=== PATIENT | female | born 1960 | race Caucasian/White ===

== ENCOUNTER → 2019-12-29 11:19 | Outpatient (CLI) | payer OTHER, SELFPAY ==
--- NOTE | 2019-12-29 15:14 | STRESSREP_ITS ---
Stress Test Report Date: 12-29-2019 Procedure: Exercise tolerance test Indications: Chest pain Consent: Per the patient Procedure: The patient exercised on a Candelario protocol for 10 minutes completing stage III and 1 minute of stage IV achieving a peak heart rate of 142 bpm (87 % predicted maximal heart rate) with a peak blood pressure 168/74 mmHg and a peak MET capacity of approximately 11 mET's. The baseline ECG demonstrated normal sinus rhythm. The peak exercise ECG demonstrated no obvious ECG changes. There were no cardiac dysrhythmias pretest, during exercise, or recovery. The functional capacity was considered good. The patient had mild chest discomfort pretest, during exercise, and recovery with no reported change. The examination was discontinued secondary to discomfort. Impression: 1. Technically adequate (percent predicted maximal heart rate greater than 85%) exercise tolerance test 2. Peak exercise ECG with no obvious ECG changes 3. There were no cardiac dysrhythmias during exercise or recovery This note was generated with [employer] software. It may contain incorrect words, spelling, and punctuation that were not noted in checking the note before signing.
== END ==
PROVIDERS: PCP Internal Medicine; Referring Provider Clinical Nurse Specialist; Visit Provider Clinical Nurse Specialist
DX: R07.89 Other chest pain (principal)
CPT/HCPCS: 93017

== ENCOUNTER 2021-07-08 11:20 | Emergency (ER) | payer OTHER, SELFPAY ==
[2021-07-08 11:21] VITALS: BP 127/81; PULSE 93; RESP 20; TEMP 36.7; O2SAT 96; BMI 26.8
[2021-07-08 11:24] VITALS: BP 127/81; PULSE 92; RESP 20; TEMP 36.7; TEMP 36.9; O2SAT 95
--- NOTE | 2021-07-08 12:07 | EKG12_ITS ---
Test Reason : SOB Blood Pressure : / mmHG Vent. Rate : 078 BPM Atrial Rate : 078 BPM P-R Int : 166 ms QRS Dur : 100 ms QT Int : 370 ms P-R-T Axes : 039 059 032 degrees QTc Int : 421 ms Normal sinus rhythm Low voltage QRS (Limb Leads) Confirmed by KATE FANG, DRE ([id number]), greeting card editor ANAT BOWLING ([id number]) on 07/10/2021 9:10:29 AM Referred By: MIKO Confirmed By:DRE LOVE MD
--- NOTE | 2021-07-08 12:07 | ED.VIS.DYS ---
HPI History of Present Illness Chief Complaint: Shortness of Breath Narrative Narrative: Patient was diagnosed with Covid, symptoms have improved but she has shortness of breath and a weight on her chest. She does have a hypercoagulable state but she is on Xarelto. She has no calf pain. She has no pleuritic component. She has no fever or chills she does have generalized myalgias but these are improving. PFSH PFSH Home Medications rivaroxaban [Xarelto] 20 mg PO DAILY #30 tablet 02/19/14 [Rx Last Taken Unknown] cholecalciferol (vitamin D3) [Vitamin D3] 25 mcg PO DAILY 07/08/21 [History Last Taken Unknown] flaxseed oil 1,000 mg PO DAILY 07/08/21 [History Last Taken Unknown] multivitamin 1 tab PO DAILY 07/08/21 [History Last Taken Unknown] Allergy/AdvReac Type Severity Reaction Status Date / Time Sulfa (Sulfonamide AdvReac Nausea Verified 07/08/21 11:21 Antibiotics) Social History Smoking Status: Never smoker ROS ROS ED ROS Narrative Past medical history: Reviewed, history of DVT on Xarelto Medications: Reviewed Social history: Noncontributory Review of systems: All systems negative except as indicated General: No current fever Eyes: No visual changes ENT: No upper airway congestion, normal voice Neck: No neck pain Cardiovascular: She does feel some pressure on her chest. Respiratory: Shortness of breath as in HPI Gastrointestinal: No abdominal pain, nausea vomiting or diarrhea Genitourinary: No dysuria Musculoskeletal: Myalgias that are improving Skin: No rash Neurological: No memory loss, confusion or any focal weakness Psych: No recent behavioral changes Hematologic: No easy bleeding or easy bruising EXAM Physical Exam Narrative Exam Narrative: Physical exam General: Well nourished, Well developed, No Acute Distress. She does not appear toxic. Head: Normocephalic, Atraumatic Eyes: Conjunctiva not pale ENT: Moist mucous membranes, some upper airway congestion. Neck: Supple, Nontender, No lymphadenopathy Cardiovascular: Regular rate, Regular rhythm Respiratory: No distress, CTA bilaterally. She is speaking in full sentences and saturating well. Abdomen: Soft, Nontender, Nondistended Back: Nontender, Normal Inspection. Negative for: CVA tenderness Extremities: Nontender, No edema Skin: Normal color, No rash Neurological: Alert, Normal Strength, Normal Sensation Psychological: Normal affect Const Vital Signs: 07/08/21 11:21 07/08/21 11:24 07/08/21 12:45 Temperature 98.1 F 98.4 F 98.4 F Temperature Source Temporal Temporal Temporal Pulse Rate 93 92 92 Respiratory Rate 20 H 20 H 20 H Respiratory Effort Blood Pressure 127/81 H 127/81 H 127/81 H Blood Pressure Mean 96 96 96 Pulse Ox 96 95 95 Oxygen Delivery Method Room Air Room Air Room Air 07/08/21 12:47 Temperature Temperature Source Pulse Rate Respiratory Rate Respiratory Effort Normal Blood Pressure Blood Pressure Mean Pulse Ox Oxygen Delivery Method Room Air MDM MDM MDM Narrative Medical decision making narrative: Patient has an unremarkable work-up. She is saturating well when I went into the room she was saturating at 100%. Her x-ray is unremarkable and blood work is unremarkable. I am not worried about thromboembolic disease since she is on Xarelto. She is day 9 of her Covid and appears to be doing well. She has a pulse oximeter at home and will check if it drops below 90 she will return otherwise if she feels much worse she will also return. Lab Data Labs: Laboratory Results - last 24 hr 07/08/21 07/08/21 12:30 12:30 WBC 1.9 L RBC 4.95 Hgb 14.2 Hct 43.2 MCV 87.3 MCH 28.7 MCHC 32.9 RDW Std Deviation 39.3 RDW Coeff of Seun 12.3 Plt Count 221 MPV 8.6 Immature Gran % (Auto) 0.000 Neut % (Auto) 26.3 L Lymph % (Auto) 60.8 H [place] % (Auto) 12.9 H Eos % (Auto) 0.0 Baso % (Auto) 0.0 Absolute Neuts (auto) 0.5 L Absolute Lymphs (auto) 1.18 Nucleated RBC % 0 Differential Comment Atypical Lymphocytes 1+ Platelet Estimate ADEQUATE RBC Morphology NORM C+C Sodium 139 Potassium 3.7 Chloride 105 Carbon Dioxide 28.0 Anion Gap 6 BUN 8 Creatinine 0.67 Estim Creat Clear Calc 82.36 Est GFR (MDRD) Af Amer 116 Est GFR (MDRD) Non-Af 96 BUN/Creatinine Ratio 11.9 Glucose 98 Calcium 8.7 Total Bilirubin 0.40 AST 36 ALT 42 Alkaline Phosphatase 76 Troponin I High Sens 6 Total Protein 8.1 Albumin 3.5 Globulin 4.6 H Albumin/Globulin Ratio 0.8 L Radiography Diagnostic Testing: Radiology Impression Chest X-Ray 07/08/21 12:43 IMPRESSION: Minimal increased markings at the right lung base. Early infiltrate should be ruled out. Electronically Signed: Memo Morse MD at 12:54 EDT , Service support , Discharge Plan Triage Chief Complaint: Shortness of Breath ED Provider: Giovanny Lima Dx/Rx/DC Orders Clinical Impression: COVID Instructions: Coronavirus Disease 2019 (COVID-19): Overview Prescriptions: No Action Xarelto 20 MG tablet 20 mg PO DAILY Qty: 30 RF: 0 multivitamin Tablet 1 tab PO DAILY RF: 0 flaxseed oil 1,000 mg Capsule 1,000 mg PO DAILY RF: 0 cholecalciferol (vitamin D3) [Vitamin D3] 25 mcg (1,000 unit) Tablet,Chewable 25 mcg PO DAILY RF: 0 Primary Care Provider: Salome Harvey Referrals: Salome Harvey MD [Primary Care Provider] - 2 Days Disposition Disposition: Home, Self Care
--- NOTE | 2021-07-08 12:43 | RAD_ITS ---
STUDY: X-RAY CHEST REASON FOR EXAM: Female, 60 years old. Increasing shortness of breath and fatigue. Low-grade fever. TECHNIQUE: Single AP portable view of the chest. COMPARISON: None. FINDINGS: Minimal increased markings at the right lung base. Early infiltrate should be ruled out. There is no demonstrated pleural abnormality. Normal size heart. Normal mediastinum and diane. Normal visualized pulmonary arteries. Normal visualized aortic arch and descending thoracic aorta. Normal visualized thoracic spine. Normal visualized ribs, clavicles, and shoulders. There is no demonstrated abnormality of the visualized soft tissue structures of the upper abdomen. RAD/Chest 1 View (Portable) IMPRESSION: Minimal increased markings at the right lung base. Early infiltrate should be ruled out. Electronically Signed: Memo Morse MD at 12:54 EDT , Service support ,
[2021-07-08 12:45] VITALS: BP 127/81; PULSE 92; RESP 20; TEMP 36.9; O2SAT 95
[2021-07-08 12:45] LABS: Absolute Lymphocyte Count 1.18 X10^3/uL (0.83-4.51); Absolute Neutrophil Count 0.5 X10^3/uL (2.0-7.7); Hematocrit 43.2 % (37-47); Hemoglobin 14.2 g/dL (12.0-15.0); Lymphocyte # 1.18 X10^3/ul (0.83-4.51); Lymphocyte % 60.8 % (19-41); Mean Corp Hgb Conc 32.9 g/dL (32-36); Mean Corpuscular Hgb 28.7 pg (27.0-32.0); Mean Corpuscular Volume 87.3 fL (81-99); Mean Platelet Vol. 8.6 fl (6.2-12.0); Monocyte# 0.25 X10^3/uL; Monocyte% 12.9 % (0-10); NRBC Flagged by Analyzer 0 % (0-5); Neutrophil # 0.51 X10^3/uL (2.7-7.7); Neutrophil % 26.3 % (47-70); POSITIVE DIFFERENTIAL YES; POSITIVE MORPHOLOGY YES; Platelet Count 221 K/mm3 (150-450); RBC Distribution Width CV 12.3 % (11.6-14.6); RBC Distribution Width SD 39.3 fl (35.1-43.9); Red Blood Count 4.95 M/mm3 (4.2-5.4); White Blood Count 1.9 K/mm3 (4.4-11.0)
[2021-07-08 12:47] VITALS: O2SAT 99
[2021-07-08 12:47] LABS: Differential Indicated SCAN CRITERIA MET
[2021-07-08 13:06] LABS: ALB/GLOB Ratio 0.8 RATIO (0.9-2.4); AST(SGOT) 36 U/L (15-37); Alanine Aminotransfer ALT/SGPT 42 U/L (13-56); Albumin, Serum 3.5 g/dL (3.2-5.0); Alkaline Phosphatase 76 U/L (45-117); Anion Gap 6 (5-15); BUN 8 mg/dL (7-18); BUN/Creat Ratio 11.9 RATIO (10-20); Calcium,Total 8.7 mg/dL (8.5-10.1); Chloride 105 mmol/L (98-107); Creatinine, Serum 0.67 mg/dL (0.55-1.02); EST Glomerular Filtration Rate 96 mL/min (>60); Est Glom Filt Rate - Afr Amer 116 mL/min (>60); Estimated Creatinine Clearance 82.36 ml/min; Globulin 4.6 g/dL (2.2-4.2); Glucose 98 mg/dL (74-106); Potassium 3.7 mmol/L (3.5-5.1); Protein, Total 8.1 g/dL (6.4-8.2); Sodium Level 139 mmol/L (136-145); Troponin-I HS 6 pg/mL (3.0-54.0)
[2021-07-08 13:20] LABS: Platelet Estimate ADEQUATE (ADEQ); Red Cell Morphology NORM C+C NORMAL (NORM C&C)
[2021-07-08 13:21] LABS: Atypical Lymphocyte 1+ %
[2021-07-08 13:51] VITALS: BP 120/95; PULSE 81; RESP 18; O2SAT 99
== END 2021-07-08 13:52 | disposition home or self-care (01) ==
PROVIDERS: Emergency Provider Emergency Medicine; PCP Internal Medicine
DX: U07.1 COVID-19 (principal); Z86.718 Personal history of other venous thrombosis and embolism; Z79.01 Long term (current) use of anticoagulants
CPT/HCPCS: 71045; 80053; 84484; 85025; 93005; 99283; A4216

== ENCOUNTER 2023-02-27 21:00 | Emergency (ER) | payer OTHER, SELFPAY ==
[2023-02-27 21:01] VITALS: BP 157/98; PULSE 84; RESP 16; TEMP 36.4; O2SAT 98; BMI 27.4
--- NOTE | 2023-02-27 21:29 | RAD_ITS ---
STUDY: X-RAY - RIGHT FOOT CLINICAL: Female, 62 years old. injury TECHNIQUE: 3 view(s) of the foot. COMPARISON: None. FINDINGS: Normal talus, calcaneus, and tarsal bones. Normal visualized subtalar, talonavicular, calcaneocuboid, tarsal and tarsometatarsal articulations. Acute nondisplaced transverse fracture of the base of the fifth metatarsal bone consistent with a Dove fracture. Normal metatarsophalangeal joint of the great toe. Normal tibial and fibular sesamoid bones. Normal interphalangeal joint of the great toe. Normal phalanges of the great toe. Normal second through fifth metatarsophalangeal joints. Normal interphalangeal joints and phalanges of the lesser toes. The soft tissue structures are unremarkable. RAD/Foot min 3 Views IMPRESSION: Acute Dove fracture. Electronically Signed: Fawad Horta MD at 22:16 EDT ,
--- NOTE | 2023-02-27 21:30 | ED.VIS.LOWEX ---
HPI History of Present Illness Chief Complaint: Lower Extremity Injury Informant: patient Narrative Narrative: Patient states she rolled her right ankle after tripping on some shoes that were on a landing that she stepped on accidentally while coming down some steps in her home. She did not fall or injure anything else. She has pain in the area where there is some swelling in the proximal lateral/peroneal foot and not the ankle bone or anywhere else. PFSH PFS Medical History Factor 5 Leiden mutation, heterozygous GERD (gastroesophageal reflux disease) Home Medications rivaroxaban 20 mg tablet (Xarelto) 20 mg PO DAILY ##30 02/19/14 [Rx Last Taken Unknown] cholecalciferol (vitamin D3) 25 mcg (1,000 unit) chewable tablet (Vitamin D3) 25 mcg PO DAILY 07/08/21 [History Last Taken Unknown] flaxseed oil 1,000 mg capsule 1,400 mg PO DAILY 07/08/21 [History Last Taken Unknown] multivitamin 1 tab PO DAILY 07/08/21 [History Last Taken Unknown] tramadol 50 mg tablet 50 mg PO Q6H PRN pain 3 days #12 tabs 02/27/23 [Rx Last Taken Unknown] Allergy/AdvReac Type Severity Reaction Status Date / Time Sulfa (Sulfonamide AdvReac Nausea Verified 02/27/23 21:02 Antibiotics) Social History Smoking Status: Never smoker ROS ROS ED Constitutional Constitutional ED: Denies chills or fever(s) Musculoskeletal Musculoskeletal: Reports extremity pain; Denies neck pain Integumentary Denies Abrasions, rash or wounds Neurologic Neurologic: Denies paresthesias or weakness EXAM Physical Exam Const Vital Signs: 02/27/23 21:01 Temperature 97.5 F L Temperature Source Temporal Pulse Rate 84 Respiratory Rate 16 Blood Pressure 157/98 H Blood Pressure Mean 117 Pulse Ox 98 Oxygen Delivery Method Room Air Positive well nourished and well developed General Appearance ED: well developed and NAD Neck full ROM and supple Back/Spine normal ROM and normal to inspection Extremity full ROM Extremity Narrative: Tender swollen ecchymotic area lateral right talus, distal and anterior to the lateral malleolus which is not tender or swollen, the medial malleolus is nontender, and no tenderness at the base of the fifth metatarsal, proximal fibula, or elsewhere in the lower leg or foot. No pain with lateral talar force, but there is increased pain with forced inversion of the foot. Neuro oriented x3, no focal motor deficits and no sensory deficits noted Sensorium / Orientation: alert Psych mental status grossly normal and thought process normal Skin no wounds Rashes: no rashes MDM MDM MDM Narrative Medical decision making narrative: Three-view x-ray series of the right foot on my interpretation shows a Dove fracture at the base of the fifth metatarsal in addition to a lateral avulsion fracture at the talus. Radiologist interpretation was reviewed, the only called Dove fracture. In addition, three-view x-ray series of the right ankle were obtained and on my interpretation shows an avulsion fracture of the tip of the distal fibula. The mortise appears normal and intact. I reviewed the radiologist interpretation who read the x-ray is normal. I reevaluated the patient. She now does have tenderness at all of these areas, the distal fibula and the base of the fifth metatarsal, the latter of which there is some ecchymosis now. All consistent with avulsion fractures in all of these areas including the Dove fracture. Therefore I will refer her to podiatry, put her in a walking boot, crutches for nonweightbearing status, and give her tramadol. Radiography Diagnostic Testing: Clinical Impression(s) from Imaging Studies Foot X-Ray 02/27/23 21:29 IMPRESSION: Acute Dove fracture. Electronically Signed: Fawad Horta MD at 22:16 EDT Reading Location ID and State: [id number] / [facility] Tel , Service support , Ankle X-Ray 02/27/23 21:32 IMPRESSION: Normal x-ray examination of the ankle. Electronically Signed: Fawad Horta MD at 22:17 EDT , Discharge Plan Triage Chief Complaint: Lower Extremity Injury ED Provider: Tomy Sarmiento Dx/Rx/DC Orders Clinical Impression: Dove fracture, Closed avulsion fracture of distal end of right fibula, Closed avulsion fracture of right talus Instructions: Using Crutches: [id number], Fifth Metatarsal Fx Prescriptions: New tramadol 50 mg tablet 50 mg PO Q6H PRN (Reason: pain) 3 Days Qty: 12 0RF No Action Xarelto 20 MG tablet 20 mg PO DAILY Qty: 30 0RF Label Comments: BLOOD THINNER Rx Instructions: To be started following completion of 21 day regimen of 15 mg BID dosing. multivitamin Tablet 1 tab PO DAILY flaxseed oil 1,000 mg Capsule 1,400 mg PO DAILY cholecalciferol (vitamin D3) [Vitamin D3] 25 mcg (1,000 unit) Tablet,Chewable 25 mcg PO DAILY Primary Care Provider: Salome Harvey Referrals: Alton Burton DPM [Med Staff - Active Staff] - As soon as possible (call on Wednesday for appt) Salome Harvey MD [Primary Care Provider] - Disposition Disposition: Home, Self Care
--- NOTE | 2023-02-27 21:32 | RAD_ITS ---
STUDY: X-RAY - RIGHT ANKLE REASON FOR EXAM: Female, 62 years old. injury TECHNIQUE: 3 view(s) of the ankle. COMPARISON: None. FINDINGS: Normal visualized distal tibia and fibula. Normal medial and lateral malleoli. Normal tibiotalar articulation and ankle mortise. Normal visualized talus and calcaneus. The visualized subtalar, talonavicular, calcaneocuboid and tarsal articulations are normal. The soft tissue structures are unremarkable. RAD/Ankle min 3 Views IMPRESSION: Normal x-ray examination of the ankle. Electronically Signed: Fawad Horta MD at 22:17 EDT ,
[2023-02-27] MEDS: traMADol 50 MG Tablet PO (23:01)
[2023-02-27 23:55] VITALS: BP 148/89; PULSE 81; RESP 16; O2SAT 98
== END 2023-02-27 23:45 | disposition home or self-care (01) ==
PROVIDERS: Emergency Provider Emergency Medicine; PCP Internal Medicine; Visit Provider Emergency Medicine
DX: S82.401A Unspecified fracture of shaft of right fibula, initial encounter for closed fracture (principal); S92.151A Displaced avulsion fracture (chip fracture) of right talus, initial encounter for closed fracture; Z79.01 Long term (current) use of anticoagulants; W10.9XXA Fall (on) (from) unspecified stairs and steps, initial encounter
CPT/HCPCS: 73610; 73630; 99284

== ENCOUNTER → 2025-03-01 | Outpatient (CLI) | payer OTHER, SELFPAY ==
--- NOTE | 2025-03-01 08:51 | CT_ITS ---
PROCEDURE: SINUS/FACIAL BONE, 03/01/2025 REASON FOR EXAM: CHRONIC SINUSITIS TECHNIQUE: CT sinuses was performed without IV contrast. Multiplanar reformats were generated. RADIATION DOSE SUMMARY: CTDlvol: 33.06 mGy DLP: 821.45 mGycm One or more dose reduction techniques were used (e.g., Automated exposure control, adjustment of the mA and/or kV according to patient size, use of iterative reconstruction technique). COMPARISON: None FINDINGS: Operative changes: None. Paranasal sinuses: Clear. Outflow tracts: Patent. Anatomic variants: Slight leftward nasal septal deviation of approximately 3 mm with a leftward bony spur exerting mass-effect on the LEFT middle greater than inferior turbinates.. Complete RIGHT and incomplete LEFT sphenoid sinus septation insertion of the bony carotid canals. Other: Intracranial atherosclerosis. Cervical spinal degenerative changes at C1-C2. CT/Sinus/Facial Bone IMPRESSION: 1. No appreciable paranasal sinus disease. Outflow tracts are patent. 2. Additional description as above. Reading Location: [id number]
== END | disposition home or self-care (01) ==
LOC: CT 08:50
PROVIDERS: PCP Internal Medicine; Referring Provider Otolaryngology; Visit Provider Otolaryngology
DX: J32.8 Other chronic sinusitis (principal)
CPT/HCPCS: 70486

== ENCOUNTER 2025-03-19 13:56 | Observation (INO) | payer OTHER, SELFPAY ==
[2025-03-19] VITALS (10 sets, daily range): BP systolic 127–147; BP diastolic 71–100; PULSE 54–84; RESP 14–20; TEMP 36.7; O2SAT 94–100; BMI 27.8; BMI 27.5
--- NOTE | 2025-03-19 14:29 | ED.VIS.CHEST ---
HPI History of Present Illness Chief Complaint: Chest Pain Informant: patient Onset/Context/Timing Onset: Today Activity at onset: gradual Timing: Continuous (Today) and Intermittent (Over the past month) Quality: Positive for Pressure Location: Substernal Worsened By: - (Mowing her yard) Relieved By: Nothing Narrative Narrative: Patient presents with chest pain that became worse today. Patient states it has been intermittent over the past month but today it has become constant and is worse. Patient states it is a pressure over the substernal area. Patient states it is worse when she mows her yard. Patient states she is able to walk without any chest pain however. Patient states nothing makes it better. Patient denies any nausea or vomiting. Patient denies any shortness of breath or cough. Patient denies any lightheadedness. Patient admits to some gastroesophageal reflux symptoms. Patient denies any fevers or chills. CVD Risk Factors: Positive for Hypertension; Negative for Diabetes, Hypercholesterolemia, Family History 1' </=55 or Smoking PE Risk Factors: Negative for Recent Travel/Surgery, Recent Immobilization, Prior DVT or PE or Cancer [facility] Medical History (Updated 03/19/25 @ 15:[address] Nicko Juarez, DO) Hypertension Factor 5 Leiden mutation, heterozygous GERD (gastroesophageal reflux disease) Home Medications ?Medication ?Instructions ?Recorded ?Last Taken ?Type rivaroxaban 20 mg tablet (Xarelto) 20 mg PO DAILY ##30 02/19/14 Unknown Rx cholecalciferol (vitamin D3) 25 25 mcg PO DAILY 07/08/21 Unknown History mcg (1,000 unit) chewable tablet (Vitamin D3) flaxseed oil 1,000 mg capsule 1,400 mg PO DAILY 07/08/21 Unknown History multivitamin 1 tab PO DAILY 07/08/21 Unknown History amlodipine 2.5 mg tablet 2.5 - 5 mg PO DAILY 03/19/25 Unknown History escitalopram oxalate 5 mg tablet 5 mg PO DAILY 03/19/25 Unknown History omeprazole 20 mg capsule,delayed 20 mg PO BID 03/19/25 Unknown History release Allergy/AdvReac Type Severity Reaction Status Date / Time Sulfa (Sulfonamide AdvReac Nausea Verified 03/19/25 13:57 Antibiotics) Surgical History no surgical history no surgical history Social History Smoking Status: Never smoker ROS ROS ED Constitutional Constitutional ED: Denies chills or fever(s) Eyes Eyes: Reports blurry vision; Denies diplopia ENT ENT ED: Denies rhinorrhea or sore throat Cardiovascular Cardiovascular: Reports chest pain; Denies palpitations Respiratory/Chest Respiratory/Chest: Denies cough or dyspnea Gastrointestinal Gastrointestinal: Denies nausea or vomiting Genitourinary Genitourinary ED: Denies dysuria or hematuria Musculoskeletal Musculoskeletal: Reports back pain; Denies neck pain Integumentary Denies abscess or rash Neurologic Neurologic: Denies headache(s) or weakness Allergic/Immunologic Allergic/Immunologic ED: Denies mouth swelling or urticaria EXAM Physical Exam Const Vital Signs: 03/19/25 13:57 03/19/25 14:08 03/19/25 14:57 Temperature 98.1 F Temperature Source Oral Pulse Rate 81 72 Respiratory Rate 19 H 20 H Respiratory Effort Normal Blood Pressure 147/100 H 135/100 H Blood Pressure Mean 115 111 Pulse Ox 98 94 Oxygen Delivery Method Room Air Room Air 03/19/25 15:07 03/19/25 15:08 03/19/25 15:13 Temperature Temperature Source Pulse Rate 84 79 Respiratory Rate 15 Respiratory Effort Blood Pressure 135/100 H Blood Pressure Mean Pulse Ox 95 Oxygen Delivery Method Room Air 03/19/25 16:00 Temperature Temperature Source Pulse Rate 65 Respiratory Rate 15 Respiratory Effort Blood Pressure 127/82 H Blood Pressure Mean 95 Pulse Ox 97 Oxygen Delivery Method Positive well nourished and well developed Constitutional Narrative: BMI is 27.9. General Appearance ED: well developed and NAD HEENT Reports moist mucous membranes Neck supple and no JVD Resp normal respiratory effort and clear to auscultation bilaterally Cardio regular rate and regular rhythm GI soft to palpation, non-tender and non-distended Extremity normal to inspection Neuro oriented x3, CN's II-XII intact bilaterally and no sensory deficits noted Sensorium / Orientation: awake and alert Motor Exam: strength 5/5 throughout Psych mental status grossly normal Heart Score History: Moderately Suspicious ECG: Normal Age: >45 - <65 years Risk Factors: 1 or 2 Risk Factors Troponin: >1 - <3 Normal Limit Score: 4 MDM MDM MDM Narrative Medical decision making narrative: Differential diagnosis includes cardiac dysrhythmia, cardiac ischemia, pneumonia, pulmonary embolism, bronchitis, electrolyte abnormality, gastroesophageal reflux disease, musculoskeletal pain, and anxiety. EKG will be obtained to assess for cardiac dysrhythmia and cardiac ischemia. Chest x-ray will be obtained to assess for pneumonia or bronchitis. CBC will be obtained to assess for leukocytosis and anemia. Basic metabolic profile will be obtained to assess for electrolyte abnormality and renal function. PT with INR and PTT will be obtained to assess for coagulopathy. High-sensitivity troponin will be obtained to assess for cardiac ischemia. 2-hour repeat high-sensitivity troponin will be obtained to assess for ongoing cardiac ischemia. D-dimer will be obtained to assess for pulmonary embolism. Lab Data Attestation: I reviewed the patient's lab results. Lab results narrative: CBC was reviewed and was within normal limits. Basic metabolic profile was reviewed. Glucose was mildly elevated at 166. The remainder is within normal limits. PT with INR and PTT were reviewed and were within normal limits. D-dimer was reviewed and was normal at 0.34. Initial high-sensitivity troponin was reviewed and was slightly elevated at 45. Labs: Laboratory Results - last 24 hr 03/19/25 14:09 WBC 4.5 RBC 4.79 Hgb 13.4 Hct 41.2 MCV 86.0 MCH 28.0 MCHC 32.5 RDW Std Deviation 40.0 RDW Coeff of Seun 12.8 Plt Count 284 MPV 8.8 Immature Gran % (Auto) 0.200 Neut % (Auto) 64.7 Lymph % (Auto) 27.7 [place] % (Auto) 6.0 Eos % (Auto) 0.7 Baso % (Auto) 0.7 Absolute Neuts (auto) 2.9 Absolute Lymphs (auto) 1.24 Nucleated RBC % 0 PT 13.4 INR 1.0 APTT 28.3 D-Dimer Quant (PE/DVT) 0.34 Sodium 136 Potassium 4.5 Chloride 104 Carbon Dioxide 21.4 Anion Gap 10 BUN 21 H Creatinine 0.88 Estim Creat Clear Calc 67.59 Est GFR (MDRD) Non-Af 74 BUN/Creatinine Ratio 24.3 H Glucose 166 H Calcium 8.4 Troponin T High Sens 45 H Radiography Chest X-Ray - ED: 1 View, Read by ED Physician, Read by Radiologist and No Acute Disease Diagnostic Testing: Clinical Impression(s) from Imaging Studies Chest X-Ray 03/19/25 14:45 IMPRESSION: No Acute Findings. Reading Location: [facility] Portable 1 view chest x-ray was obtained. On my independent interpretation, lung patton are clear. There is normal cardiac silhouette. Bony thorax is normal. There is no acute process noted. Radiologist also interpreted the x-ray and agrees. EKG Initial EKG: Attestation: I personally reviewed and interpreted this EKG as follows: Interpretation: Sinus Rhythm (68) and No Acute Injury Pattern Comments: EKG was obtained. On my independent interpretation, it showed a normal sinus rhythm with a rate of 68. NE interval, QRS interval, and QTc intervals were all normal. [place] was normal. There are no acute ST or T wave changes. Prior EKG tracings: available for review Prior: Unchanged (07/08/2021) Management Discussion w/another healthcare provider: Hospitalist Treatment and Re-Evaluation :: Patient was given aspirin and sublingual nitroglycerin. Patient was feeling better on reevaluation. Patient has a HEART score of 4. Patient was advised of her findings. Patient has not had a stress test in 5 years. I recommended admission to the hospital for further evaluation of her chest pain. Patient is agreeable with this. Case was discussed with the hospitalist. She will admit the patient to her service for observation. Patient understood and was agreeable with the plan. All questions were answered. Discharge Plan Triage Chief Complaint: Chest Pain ED Provider: Nicko Juarez Dx/Rx/DC Orders Clinical Impression: Chest pain, Hypertension, Elevated troponin Prescriptions: No Action Xarelto 20 MG tablet 20 mg PO DAILY Qty: 30 0RF Patient Comments: BLOOD THINNER Rx Instructions: To be started following completion of 21 day regimen of 15 mg BID dosing. multivitamin Tablet 1 tab PO DAILY flaxseed oil 1,000 mg Capsule 1,400 mg PO DAILY cholecalciferol (vitamin D3) [Vitamin D3] 25 mcg (1,000 unit) Tablet,Chewable 25 mcg PO DAILY amlodipine 2.5 mg tablet 2.5 - 5 mg PO DAILY omeprazole 20 mg capsule,delayed release(DR/EC) 20 mg PO BID escitalopram oxalate 5 mg tablet 5 mg PO DAILY Primary Care Provider: Salome Harvey Referrals: Salome Harvey MD [Primary Care Provider] - Print Language: Spanish Disposition Disposition: Acute Care Hospital [facility]
--- NOTE | 2025-03-19 14:35 | EKG12_ITS ---
Test Reason : Blood Pressure : */* mmHG Vent. Rate : 68 BPM Atrial Rate : 68 BPM P-R Int : 170 ms QRS Dur : 100 ms QT Int : 408 ms P-R-T Axes : 39 28 27 degrees QTcB Int : 433 ms Normal sinus rhythm Normal ECG Confirmed by JEFF FANG, CHI ([id number]), editor magazine ANAT BOWLING ([id number]) on 03/20/2025 1:28:20 PM Referred By: Confirmed By: CHI AGUILAR MD
--- NOTE | 2025-03-19 14:45 | RAD_ITS ---
PROCEDURE: CHEST 1 VIEW (PORTABLE) 03/19/2025 REASON FOR EXAM: CHEST PAIN TECHNIQUE: Frontal view of the chest. COMPARISON: Prior study dated July 08, 2021. FINDINGS: Hardware: None Heart: Unremarkable Lungs: Lungs are clear. Bones unremarkable: RAD/Chest 1 View (Portable) IMPRESSION: No Acute Findings. Reading Location: [place] [id number]
[2025-03-19 15:02] LABS: Absolute Lymphocyte Count 1.24 X10^3/uL (0.83-4.51); Absolute Neutrophil Count 2.9 X10^3/uL (2.0-7.7); Basophil# 0.03 X10^3/uL; Basophil% 0.7 % (0-1); Eosinophil# 0.03 X10^3/uL; Eosinophils% 0.7 % (0-5); Hematocrit 41.2 % (37-47); Hemoglobin 13.4 g/dL (12.0-15.0); Lymphocyte # 1.24 X10^3/ul (0.83-4.51); Lymphocyte % 27.7 % (19-41); Mean Corp Hgb Conc 32.5 g/dL (32-36); Mean Platelet Vol. 8.8 fl (6.2-12.0); Monocyte# 0.27 X10^3/uL; NRBC Flagged by Analyzer 0 % (0-5); Neutrophil % 64.7 % (47-70); Platelet Count 284 K/mm3 (150-450); RBC Distribution Width CV 12.8 % (11.6-14.6); Red Blood Count 4.79 M/mm3 (4.2-5.4); White Blood Count 4.5 K/mm3 (4.4-11.0)
[2025-03-19] MEDS: Aspirin 81 MG TAB.CHEW 324 MG PO (15:09)
[2025-03-19 15:13] LABS: Partial Thromboplast Time 28.3 Seconds (24.1-36.2); Prothrombin Time (Protime)PT. 13.4 SECONDS (11.7-14.9)
[2025-03-19] MEDS: Nitroglycerin SL (ED/IMG/CATH) 0.4 MG TABLET SL (15:13)
[2025-03-19 15:25] LABS: D-Dimer Quantitative (DVT/PE) 0.34 FEU/ug/m (0.27-0.49)
[2025-03-19 15:33] LABS: Anion Gap 10 (5-15); BUN 21 mg/dL (4-19); BUN/Creat Ratio 24.3 RATIO (10-20); Calcium,Total 8.4 mg/dL (7.6-11.0); Carbon Dioxide 21.4 mmol/L (21.0-32.0); Chloride 104 mmol/L (98-108); Creatinine, Serum 0.88 mg/dL (0.70-1.20); EST Glomerular Filtration Rate 74 (>60); Estimated Creatinine Clearance 67.59 ml/min (50-250); Glucose 166 mg/dL (70-99); Potassium 4.5 mmol/L (3.3-5.1); Sodium Level 136 mmol/L (133-145); Troponin T High Sensitivity 45 ng/L (<=14)
[2025-03-19 16:38] LABS: Troponin T High Sens 2 HR 11 ng/L (<=14)
[2025-03-19] MEDS: Acetaminophen 500 MG Tablet 1000 MG PO (18:13)
--- NOTE | 2025-03-19 18:17 | PCM.HP.STD ---
HPI - General General Date of Admission: 03/19/25 Date of Service: 03/19/25 Chief Complaint: Chest pain HPI Narrative JACOB HASSAN, is a 64-year-old female with history of factor V Leiden mutation on Xarelto, GERD, hypertension, depression presented [facility] ED 03/19/2025 with chest pain that became worse today. She has been having this intermittently over the past month but it has become constant and is worsening and is over the substernal area. Worse when she mows her yard but is able to walk without any chest pain. Nothing particularly makes it better and no other associated symptoms. In the ED temperature 98.1 with a heart rate of 81, blood pressure 147/100, respiratory rate 19 with pulse ox 98% on room air. D-dimer negative, CBC within normal limits. BMP with a glucose of 166. Initial troponin of 45 with a repeat of 11. Hospitalist contacted for admission for chest pain rule out. Patient evaluated bedside. She reports the history as above with the chest pain in the center of her chest that did seem to be worse with mowing but not with her routine daily activities otherwise, did not note anything specific that improved the pain though did feel better in the ED after nitro and aspirin with pain at a 2 down to a 0, has a headache now after nitro but denies any other acute complaints including no chest pain. Patient has not had any shortness of breath or nausea or vomiting through this time. Does report she had had a couple episodes of sharp pain that would last several seconds and get better but has not had any of these for weeks. Does have factor V Leiden mutation and is compliant with her Xarelto. [facility] Medical History (Updated 03/19/25 @ 15:[address] Nicko Juarez, DO) Factor 5 Leiden mutation, heterozygous GERD (gastroesophageal reflux disease) Hypertension Home Medications ?Medication ?Instructions ?Recorded ?Last Taken ?Type rivaroxaban 20 mg tablet (Xarelto) 20 mg PO DAILY ##30 02/19/14 03/18/25 Rx cholecalciferol (vitamin D3) 25 50 mcg PO DAILY 07/08/21 03/18/25 History mcg (1,000 unit) chewable tablet (Vitamin D3) amlodipine 2.5 mg tablet 2.5 - 5 mg PO DAILY 03/19/25 03/18/25 History escitalopram oxalate 5 mg tablet 5 mg PO DAILY 03/19/25 03/18/25 History omeprazole 20 mg capsule,delayed 20 mg PO BID 03/19/25 03/19/25 History release Allergy/AdvReac Type Severity Reaction Status Date / Time Sulfa (Sulfonamide AdvReac Nausea Verified 03/19/25 13:57 Antibiotics) Surgical History no surgical history Social History Smoking Status: Never smoker ROS ROS Narrative General: Denies fever/chills HENT: Has a headache now after nitro, denies stuffy nose, denies sore throat EYES: Denies acute unilateral changes in vision Resp: Denies cough, denies shortness of breath Cardiac: Patient's central chest pain improved and does not have any at present GI: Denies abdominal pain, denies changes in bowel, denies nausea/vomiting : Denies changes in urination Extremity: Denies swelling MSK: Denies weakness Neuro: Denies any numbness/tingling Heme: Denies any bleeding or bruising Skin: Denies rashes Psychiatric: No complaints voiced Vital Signs Vital Signs Vital Signs: 03/19/25 13:57 03/19/25 14:08 03/19/25 14:57 Temperature 98.1 F Temperature Source Oral Pulse Rate 81 72 Respiratory Rate 19 H 20 H Respiratory Effort Normal Blood Pressure 147/100 H 135/100 H Blood Pressure Mean 115 111 Pulse Ox 98 94 Oxygen Delivery Method Room Air Room Air 03/19/25 15:07 03/19/25 15:08 03/19/25 15:13 Temperature Temperature Source Pulse Rate 84 79 Respiratory Rate 15 Respiratory Effort Blood Pressure 135/100 H Blood Pressure Mean Pulse Ox 95 Oxygen Delivery Method Room Air 03/19/25 16:00 03/19/25 17:00 03/19/25 18:00 Temperature Temperature Source Pulse Rate 65 74 67 Respiratory Rate 15 14 14 Respiratory Effort Blood Pressure 127/82 H 141/85 H 132/95 H Blood Pressure Mean 95 103 107 Pulse Ox 97 95 Oxygen Delivery Method Weight Weight: 75.977 kg Body Mass Index (BMI) 27.8 Physical Exam Narrative General: Alert, oriented, no apparent distress HEENT: Atraumatic, normocephalic Eyes: Anicteric, normal conjunctiva, extraocular movements grossly intact Neck: Supple Respiratory: Clear to auscultation bilaterally, normal respiratory effort Cardiovascular: Regular rate and rhythm GI: Soft, nontender, nondistended Extremities: No edema Musculoskeletal: Moving all extremities Neuro: No overt focal neurological deficits Skin: No rashes appreciated Psych: Cooperative Results Lab / Micro Data 03/19/25 14:09 03/19/25 14:09 Labs: Laboratory Results - last 24 hr 03/19/25 14:09: WBC 4.5, RBC 4.79, Hgb 13.4, Hct 41.2, MCV 86.0, MCH 28.0, MCHC 32.5, RDW Std Deviation 40.0, RDW Coeff of Seun 12.8, Plt Count 284, MPV 8.8, Immature Gran % (Auto) 0.200, Neut % (Auto) 64.7, Lymph % (Auto) 27.7, [place] % (Auto) 6.0, Eos % (Auto) 0.7, Baso % (Auto) 0.7, Absolute Neuts (auto) 2.9, Absolute Lymphs (auto) 1.24, Nucleated RBC % 0, PT 13.4, INR 1.0, APTT 28.3, D-Dimer Quant (PE/DVT) 0.34, Sodium 136, Potassium 4.5, Chloride 104, Carbon Dioxide 21.4, Anion Gap 10, BUN 21 H, Creatinine 0.88, Estim Creat Clear Calc 67.59, Est GFR (MDRD) Non-Af 74, BUN/Creatinine Ratio 24.3 H, Glucose 166 H, Calcium 8.4, Troponin T High Sens 45 H 03/19/25 16:12: Troponin T Hi Sens 2 Hr 11 Imaging Radiology Impression Chest X-Ray 03/19/25 14:45 IMPRESSION: No Acute Findings. Reading Location: [facility] Assessment & Plan Assessment/Plan (1) Chest pain: PLAN: Plan #Chest pain -EKG no acute changes, rate of 68 -Chest pain presently resolved -Trop 45 and subsequently down trended to 11 -Admit to telemetry -Echo ordered -Aspirin -Statin -Lipid panel in AM -Stress test ordered for AM, if patient has any further pain could consider cardiology consult # History of factor V Leiden mutation - Continue home Xarelto #GERD -Continue PPI #Hypertension - Continue home medications #Depression/anxiety -Continue home medications #DVT ppx: Not indicated, already on home Xarelto Jillian Bateman MD Time spent in the patient's overall evaluation, decision-making process, review of diagnostic data, adjustment of management, discussion with other providers, nursing and ancillary staff involved in patient's care documentation, 57 Minutes Charges/Coding Visit Charges Inpatient E&M: 19990 Init Hosp L2
--- NOTE | 2025-03-19 18:51 | ECHOD_ITS ---
Reason For Study Reason For Study: CHEST PAIN Procedure This was a 2D Doppler, Color Flow transthoracic echocardiogram. Exam performed in department. Left Ventricle Normal LV size. Left ventricular systolic function is normal. The left ventricular ejection fraction is 60 %. No regional wall motion abnormalities noted. Right Ventricle Normal RV size. Normal systolic function. Atria Normal left atrium. Normal right atrium. Mitral Valve Mild focal mitral valve calcification of the anterior leaflet. Mild (1+) eccentric mitral valve insufficiency. Tricuspid Valve Normal tricuspid valve. Aortic Valve Trisinus/trileaflet aortic valve. Pulmonic Valve Normal pulmonic valve. Great Vessels Normal aortic root. The pulmonary artery is normal size. Normal inferior vena cava. Pericardium/Pleural No pericardial effusion. MMode/2D Measurements & Calculations LVIDd: 4.4 cm IVSd: 0.88 cm LVOT diam: 1.9 cm LVIDs: 2.4 cm LVPWd: 0.78 cm LVOT area: 2.7 cm2 RVDd: 3.1 cm FS: 45.2 % asc Aorta Diam: 3.8 cm LAV(MOD-bp): 27.2 ml LVAd ap4: 21.4 cm2 LAV(MOD-bp) Indexed: 14.9 ml/m2 LVLd ap4: 7.9 cm LAV(MOD-sp2): 30.1 ml EDV(MOD-sp4): 47.3 ml LAV(MOD-sp4): 20.7 ml EDV(sp4-el): 49.1 ml LVAs ap4: 10.4 cm2 LVLs ap4: 6.3 cm ESV(MOD-sp4): 14.6 ml ESV(sp4-el): 14.4 ml EF(MOD-sp4): 69.1 % EF(sp4-el): 70.7 % LVAd ap2: 20.2 cm2 SV(MOD-sp4): 32.7 ml SV(MOD-sp2): 28.8 ml LVLd ap2: 7.5 cm SI(MOD-sp4): 17.9 ml/m2 SI(MOD-sp2): 15.8 ml/m2 EDV(MOD-sp2): 44.7 ml EDV(sp2-el): 46.0 ml LVAs ap2: 10.7 cm2 LVLs ap2: 6.3 cm ESV(MOD-sp2): 15.9 ml ESV(sp2-el): 15.4 ml EF(MOD-sp2): 64.4 % SV(sp4-el): 34.7 ml Ao sinus diam: 3.[address] Junction: 2.6 cm LA dimension(2D): 3.7 cm LA A4 area: 10.7 cm2 RA A4 area: 10.3 cm2 TAPSE: 1.7 cm Time Measurements MV dec time: 0.27 sec Doppler Measurements & Calculations MV E max willie: 80.0 cm/sec Lat Peak E' Willie: 9.9 cm/sec Med Peak E' Willie: 7.6 cm/sec MV A max willie: 99.2 cm/sec E/E' lat: 8.1 E/E' med: 10.5 MV E/A: 0.81 MV dec slope: 295.0 cm/sec2 Ao V2 max: 125.9 cm/sec LV V1 max: 97.9 cm/sec Ao max P.3 mmHg LV V1 max P.8 mmHg Ao V2 mean: 92.8 cm/sec LV V1 mean P.3 mmHg Ao mean P.7 mmHg LV V1 mean: 74.7 cm/sec Ao V2 VTI: 27.0 cm LV V1 VTI: 22.4 cm AV (velocity ratio): 0.83 MANOJ(I,D): 2.3 cm2 MANOJ(V,D): 2.1 cm2 SV(LVOT): 61.0 ml PA V2 max: 85.4 cm/sec ECHO/Echo Complete Interpretation Summary Normal LV size. Left ventricular systolic function is normal. The left ventricular ejection fraction is 60 %. Mild focal mitral valve calcification of the anterior leaflet. Mild (1+) eccentric mitral valve insufficiency. Ordering Physician: Jillian Bateman Referring Physician: Salome Harvey M.D. Performed By: Justyna Lloyd RDCS
[2025-03-19 19:11] LABS: Troponin T High Sens 4 HR 9 ng/L (<=14)
[2025-03-19] MEDS: Rivaroxaban 20 MG Tablet PO (22:22)
[2025-03-20 03:00] VITALS: PULSE 57
[2025-03-20 03:35] VITALS: BP 109/68; PULSE 63; RESP 14; TEMP 36.9; O2SAT 99
[2025-03-20 04:46] LABS: Absolute Lymphocyte Count 2.42 X10^3/uL (0.83-4.51); Absolute Neutrophil Count 1.6 X10^3/uL (2.0-7.7); Basophil# 0.04 X10^3/uL; Basophil% 0.9 % (0-1); Eosinophil# 0.15 X10^3/uL; Eosinophils% 3.2 % (0-5); Hematocrit 40.3 % (37-47); Lymphocyte # 2.42 X10^3/ul (0.83-4.51); Lymphocyte % 52.4 % (19-41); Mean Corp Hgb Conc 32.3 g/dL (32-36); Mean Corpuscular Hgb 28.1 pg (27.0-32.0); Mean Platelet Vol. 8.6 fl (6.2-12.0); Monocyte# 0.37 X10^3/uL; NRBC Flagged by Analyzer 0 % (0-5); Neutrophil # 1.63 X10^3/uL (2.7-7.7); Neutrophil % 35.3 % (47-70); Platelet Count 250 K/mm3 (150-450); RBC Distribution Width CV 12.9 % (11.6-14.6); RBC Distribution Width SD 41.1 fl (35.1-43.9); Red Blood Count 4.63 M/mm3 (4.2-5.4); White Blood Count 4.6 K/mm3 (4.4-11.0)
--- NOTE | 2025-03-20 05:55 | EKG12_ITS ---
Test Reason : AM EKG Blood Pressure : */* mmHG Vent. Rate : 57 BPM Atrial Rate : 57 BPM P-R Int : 180 ms QRS Dur : 96 ms QT Int : 426 ms P-R-T Axes : 55 69 51 degrees QTcB Int : 414 ms Sinus bradycardia Otherwise normal ECG When compared with ECG of 19-Mar-2025 15:07, MANUAL COMPARISON REQUIRED DATA IS UNCONFIRMED Confirmed by JEFF FANG, CHI ([id number]), television news video editor ANAT BOWLING ([id number]) on 03/20/2025 1:31:45 PM Referred By: Confirmed By: CHI AGUILAR MD
[2025-03-20] MEDS: Aspirin E.C. 81 MG Tablet PO (06:40)
[2025-03-20 07:05] LABS: Anion Gap 12 (5-15); BUN 18 mg/dL (4-19); BUN/Creat Ratio 22.5 RATIO (10-20); Calcium,Total 9.4 mg/dL (7.6-11.0); Carbon Dioxide 23.4 mmol/L (21.0-32.0); Chloride 106 mmol/L (98-108); Cholesterol 248 mg/dL (<=200); EST Glomerular Filtration Rate 84 (>60); Estimated Creatinine Clearance 73.94 ml/min (50-250); Glucose 92 mg/dL (70-99); High Density Lipoprotein 62 mg/dL; Low Density Lipoprotein Calc. 168 mg/dL; Potassium 4.2 mmol/L (3.3-5.1); Sodium Level 141 mmol/L (133-145); Triglycerides 90 mg/dL; Very Low Density Lipoprotein 18 mg/dL (5-40); cholesterol:hdl ratio screen 4.02
[2025-03-20 09:30] VITALS: BP 141/81; PULSE 60; RESP 17; TEMP 36.8; O2SAT 97
[2025-03-20 09:42] LABS: Hemoglobin A1c 5.6 % (<=5.6)
[2025-03-20] MEDS: amLODIPine 2.5 MG Tablet PO (10:22)
[2025-03-20] MEDS: Escitalopram Oxalate 10 MG Tablet 5 MG PO (10:22)
[2025-03-20] MEDS: Pantoprazole Sodium 20 MG Tablet PO (10:22)
[2025-03-20] MEDS: Acetaminophen 325 MG Tablet 650 MG PO (10:31)
[2025-03-20 14:54] VITALS: BP 147/76; PULSE 59; RESP 15; TEMP 37.1; O2SAT 97
--- NOTE | 2025-03-20 15:32 | PCM.DC ---
Discharge Instructions Diet Discharge Diet: Low fat / Low cholesterol DC O2, CPAP, BIPAP needs Home O2 Discharge instructions: No Dressing / Incision Discharge Activity: Return to Normal Activity Dressing / Incision Call your doctor if you observe: Fever of 101 or Higher, Shortness of breath, Dizziness, Fainting spells, Swelling in the ankles, Chest pain and Increased palpitations (irregular heartbeat) Follow Up Care Test Results: Test results from this visit will be discussed in further detail at your follow-up appointment, if applicable. Discharge Plan Admission Admit Date/Time: 03/19/25 18:17 Attending Provider: Wing Kiser Primary Care Provider: Salome Harvey Consulting Providers: Jillian Bateman Discharge Orders/Prescriptions Prescriptions: New atorvastatin 80 mg Tablet 80 mg PO QHS 30 Days Qty: 30 0RF Continued Xarelto 20 MG tablet 20 mg PO DAILY Qty: 30 0RF Patient Comments: BLOOD THINNER Rx Instructions: To be started following completion of 21 day regimen of 15 mg BID dosing. cholecalciferol (vitamin D3) [Vitamin D3] 25 mcg (1,000 unit) Tablet,Chewable 50 mcg PO DAILY amlodipine 2.5 mg tablet 2.5 - 5 mg PO DAILY omeprazole 20 mg capsule,delayed release(DR/EC) 20 mg PO BID escitalopram oxalate 5 mg tablet 5 mg PO DAILY Referrals / Follow Up: Salome Harvey MD [Primary Care Provider] - Within 1 Week Disposition Disposition (needs filled in before D/C Order can be placed): Home, Self Care
--- NOTE | 2025-03-20 16:18 | CASEMGMT ---
Patient has order for discharge. RN CM in to discuss needs at discharge. Patient denies needs or help at discharge. Patient had no furhter questions.
--- NOTE | 2025-03-20 16:26 | DS.PCM_ITS ---
Providers Date of Admission: 03/19/25 Primary Care Physician: Dr. Salome Harvey MD Reason For Visit: CHEST PAIN R/O Diagnosis Discharge Diagnosis (1) Chest pain: Status: Acute Code(s): R07.9 - Chest pain, unspecified Medications at Discharge Home Medications rivaroxaban 20 mg tablet (Xarelto) 20 mg PO DAILY ##30 02/19/14 cholecalciferol (vitamin D3) 25 mcg (1,000 unit) chewable tablet (Vitamin D3) 50 mcg PO DAILY 07/08/21 amlodipine 2.5 mg tablet 2.5 - 5 mg PO DAILY 03/19/25 escitalopram oxalate 5 mg tablet 5 mg PO DAILY 03/19/25 omeprazole 20 mg capsule,delayed release 20 mg PO BID 03/19/25 atorvastatin 80 mg tablet 80 mg PO QHS 30 days #30 tabs 03/20/25 Hospital Course Operations None Procedures 2-D Echocardiogram and Nuclear stress test Summary of Care Provided Minutes Spent on Discharge: 36 Hospital Course: Per HPI: JACOB HASSAN, is a 64-year-old female with history of factor V Leiden mutation on Xarelto, GERD, hypertension, depression presented [facility] ED 03/19/2025 with chest pain that became worse today. She has been having this intermittently over the past month but it has become constant and is worsening and is over the substernal area. Worse when she mows her yard but is able to walk without any chest pain. Nothing particularly makes it better and no other associated symptoms. In the ED temperature 98.1 with a heart rate of 81, blood pressure 147/100, respiratory rate 19 with pulse ox 98% on room air. D-dimer negative, CBC within normal limits. BMP with a glucose of 166. Initial troponin of 45 with a repeat of 11. Hospitalist contacted for admission for chest pain rule out. Patient evaluated bedside. She reports the history as above with the chest pain in the center of her chest that did seem to be worse with mowing but not with her routine daily activities otherwise, did not note anything specific that improved the pain though did feel better in the ED after nitro and aspirin with pain at a 2 down to a 0, has a headache now after nitro but denies any other acute complaints including no chest pain. Patient has not had any shortness of breath or nausea or vomiting through this time. Does report she had had a couple episodes of sharp pain that would last several seconds and get better but has not had any of these for weeks. Does have factor V Leiden mutation and is compliant with her Xarelto. Hospital Course: 1. Chest pain?64-year-old female with history of factor V Leiden mutation currently on Xarelto presented to the hospital with chest pain that has gotten worse over the last week or so. She initially started noticing chest pain during Easter that was coming and going and was intermittent. She did not notice any specific association in the beginning but now she noticed that when she was cutting her grass and walking uphill she was having some shortness of breath with chest pain or chest pressure. Her chest pain is substernal and her initial troponin was slightly elevated into the 40s and then ultimately resolved back into the normal range. Echocardiogram was unremarkable and stress test was normal. She does have work history of place that has some mold exposure and she does have seasonal allergies so given the fact that her stress test and echocardiogram were normal I did recommend the possibility of pulmonary function testing as an outpatient. She also has a history of reflux and is on a PPI, she could be silently aspirating as well which should hopefully be picked up on the pulmonary function testing. I discussed with her and her the possibility for discharge today and expressed understanding of the risks and she benefits of going home and would like to go home today. Given the fact that she is on Xarelto and her D-dimer was normal, she does not have a pulmonary embolism. I do recommend that she follow-up with her PCP in 3 to 5 days, of note her LDL was elevated to 168 so we will continue Lipitor 80 mg nightly on discharge. 2. Factor V Leiden, essential hypertension, hyperlipidemia, anxiety, depression, GERD are all chronic medical conditions which complicate her care. Her home medications were continued where appropriate Physical Exam Narrative General: Alert, Oriented x3, Cooperative, No apparent distress HEENT: Atraumatic, PERRLA, EOMI, Normocephalic Oral: Moist Mucosa Neck: Supple, No JVD Lungs: Clear to auscultation, Normal air movement, No rhonchi, No wheeze, No rales Cardiovascular: Regular rate, Regular Rhythm, Normal S1, Normal S2, No murmurs, reproducible chest pain on palpation to her midsternal region Abdomen: Soft, Non Tender, Non-Distended, No Hepato-splenomegaly Extremities: No edema, Capillary Refill Less than 3 Seconds Skin: No rashes, No breakdown Musculoskeletal: No Tenderness to Palpation of Joints or Extremities Neurological: No focal neurological deficits, Motor Exam 5/5 strength throughout, Sensory exam intact to light touch and pain Psych/Mental Status: Normal Affect, Appropriate Weight / BMI Weight Weight: 165 lb 9.074 oz Body Mass Index (BMI) 27.5 ABG / Lab / Microbiology Data 03/20/25 03:55 03/20/25 03:55 Laboratory: Laboratory Results - last 24 hr 03/19/25 16:12: Troponin T Hi Sens 2 Hr 11 03/19/25 18:30: Troponin T Hi Sens 4Hr 9 03/20/25 03:55: WBC 4.6, RBC 4.63, Hgb 13.0, Hct 40.3, MCV 87.0, MCH 28.1, MCHC 32.3, RDW Std Deviation 41.1, RDW Coeff of Seun 12.9, Plt Count 250, MPV 8.6, Immature Gran % (Auto) 0.200, Neut % (Auto) 35.3 L, Lymph % (Auto) 52.4 H, [place] % (Auto) 8.0, Eos % (Auto) 3.2, Baso % (Auto) 0.9, Absolute Neuts (auto) 1.6 L, Absolute Lymphs (auto) 2.42, Nucleated RBC % 0, Sodium 141, Potassium 4.2, Chloride 106, Carbon Dioxide 23.4, Anion Gap 12, BUN 18, Creatinine 0.80, Estim Creat Clear Calc 73.94, Est GFR (MDRD) Non-Af 84, BUN/Creatinine Ratio 22.5 H, Glucose 92, Hemoglobin A1c 5.6, Calcium 9.4, Triglycerides 90, Cholesterol 248 H , LDL Cholesterol, Calc 168, VLDL Cholesterol 18, HDL Cholesterol 62, Cholesterol/HDL Ratio 4.02 Radiography Diagnostic Testing: Radiology Impression Echocardiogram 03/19/25 18:51 Interpretation Summary Normal LV size. Left ventricular systolic function is normal. The left ventricular ejection fraction is 60 %. Mild focal mitral valve calcification of the anterior leaflet. Mild (1+) eccentric mitral valve insufficiency. Ordering Physician: Jillian Bateman Referring Physician: Salome Harvey M.D. Performed By: Justyna Lloyd RDCS D/C Instructions Discharge Diet: Low fat / Low cholesterol Call your doctor if you observe: Fever of 101 or Higher, Shortness of breath, Dizziness, Fainting spells, Swelling in the ankles, Chest pain and Increased palpitations (irregular heartbeat) DC O2, CPAP, BIPAP Needs Home O2 Discharge instructions: No Meaningful Use Info Meaningful Use Meaningful Use Diagnoses (Choose all that apply): None applicable Ischemic Stroke Statin Dosing Therapy Reference: STATIN DOSE THERAPY REFERENCE: * Patients > 75 years receive moderate or high dose statin therapy. * Patients 75 years or YOUNGER should receive HIGH intensity statin dose unless contraindicated. You will be required to document reason for non-treatment if statin daily dose does not meet guidelines. HIGH DOSE STATIN THERAPY DAILY Atorvastatin > than or = to 40 mg Rosuvastatin > than or = to 20 mg Amlodipine + Atorvastatin > than or = to 2.5/40 mg Ezetimibe + Simvastatin 10/80 mg Simvastatin 80mg Discharge Plan Admission Admit Date/Time: 03/19/25 18:17 Attending Provider: Wing Kiser Primary Care Provider: Salome Harvey Consulting Providers: Jillian Bateman Discharge Orders/Prescriptions Prescriptions: New atorvastatin 80 mg Tablet 80 mg PO QHS 30 Days Qty: 30 0RF Continued Xarelto 20 MG tablet 20 mg PO DAILY Qty: 30 0RF Patient Comments: BLOOD THINNER Rx Instructions: To be started following completion of 21 day regimen of 15 mg BID dosing. cholecalciferol (vitamin D3) [Vitamin D3] 25 mcg (1,000 unit) Tablet,Chewable 50 mcg PO DAILY amlodipine 2.5 mg tablet 2.5 - 5 mg PO DAILY omeprazole 20 mg capsule,delayed release(DR/EC) 20 mg PO BID escitalopram oxalate 5 mg tablet 5 mg PO DAILY Referrals / Follow Up: Salome Harvey MD [Primary Care Provider] - Within 1 Week Disposition Disposition (needs filled in before D/C Order can be placed): Home, Self Care Charges/Coding Visit Charges Inpatient E&M: 47343 Disch Hosp >30min
--- NOTE | 2025-03-20 16:47 | PHA.DC.MR.R ---
Pharmacy [place] Med Reconciliation Pharmacy Service has performed discharge medication reconciliation for this patient. Attempted to marriage counselor but patient was discharged. Medications reviewed. The patient's discharge medication list was reviewed for discrepancies and discrepancies were resolved. Medications at Discharge Home Medications rivaroxaban 20 mg tablet (Xarelto) 20 mg PO DAILY ##30 02/19/14 cholecalciferol (vitamin D3) 25 mcg (1,000 unit) chewable tablet (Vitamin D3) 50 mcg PO DAILY 07/08/21 amlodipine 2.5 mg tablet 2.5 - 5 mg PO DAILY 03/19/25 escitalopram oxalate 5 mg tablet 5 mg PO DAILY 03/19/25 omeprazole 20 mg capsule,delayed release 20 mg PO BID 03/19/25 atorvastatin 80 mg tablet 80 mg PO QHS 30 days #30 tabs 03/20/25
--- NOTE | 2025-03-20 17:50 | STRESSREP ---
Stress Test Report Pharmacologic myocardial perfusion stress test. 64-year-old lady with a history of chest pain Resting EKG demonstrates sinus rhythm with a rate of 61 bpm. Resting blood pressure is 124/80 mmHg. 0.4 mg of regadenoson was infused per usual protocol followed by rapid intravenous saline flush injection. Continuous EKG monitoring was performed. The maximum heart rate was 93 bpm which was 58% of max impacted heart rate the maximum workload was 1 metabolic equivalent. At rest there were no ST or T wave changes noted to suggest ischemia and at peak infusion nonspecific ST changes were noted which did not meet the criteria for ischemia. No clinical angina is noted. The final blood pressure was 122/82 mmHg. Myocardial perfusion protocol. 11.5 mCi of technetium 99m sestamibi was injected at rest. 0.4 mg of regadenoson was infused per usual protocol. At peak infusion 34.4 mCi of technetium 99m sestamibi was injected stress images were obtained stress and rest images were reconstructed and compared in the short axis vertical long and horizontal long axis. Gated images were also obtained. Perfusion SPECT analysis: Review of the stress images demonstrate normal uptake of tracer noted in all areas of the myocardium. The resting images similar demonstrated normal uptake of tracer noted in all areas of the myocardium. No areas of reversibility are noted to suggest ischemia and no previous infarct is noted. Gated SPECT analysis: The gated ejection fraction is 77%. Conclusion: Normal pharmacologic myocardial perfusion stress test. Preserved ejection fraction.
== END 2025-03-20 16:36 | disposition home or self-care (01) ==
LOC: ED 16:20 → PCU 21:44
PROVIDERS: Admitting Provider Internal Medicine; Emergency Provider Emergency Medicine; PCP Internal Medicine; Visit Provider Family Medicine
DX: R07.2 Precordial pain (principal); R79.89 Other specified abnormal findings of blood chemistry; D68.51 Activated protein C resistance; I10 Essential (primary) hypertension; E78.5 Hyperlipidemia, unspecified; K21.9 Gastro-esophageal reflux disease without esophagitis; F32.A Depression, unspecified; F41.9 Anxiety disorder, unspecified; Z79.01 Long term (current) use of anticoagulants; Z79.899 Other long term (current) drug therapy
CPT/HCPCS: 36415; 71045; 78452; 80048; 80061; 83036; 84484; 85025; 85379; 85610; 85730; 93005; 93017; 93306; 99221; 99284; A9500; A4216; G0378; J2785